=== PATIENT | female | born 1975 | race Caucasian/White ===

== ENCOUNTER 2023-07-25 21:47 | Emergency (ER) | payer SELFPAY ==
[~2023-07-25] VITALS: Ht 167.6 cm; Wt 80.0 kg
[2023-07-25 22:12] VITALS: TEMP 98.5; O2SAT 100
[2023-07-26] MEDS: ONDANSETRON 4MG ODT PO ONE (00:58)
[2023-07-26 01:56] VITALS: BP 115/67; PULSE 98; RESP 16
== END 2023-07-26 03:04 | disposition home or self-care (01) ==
LOC: ER 21:47
DX: F10.90 Alcohol use, unspecified, uncomplicated (principal); R11.0 Nausea
CPT/HCPCS: 99283; Q0162